=== PATIENT | male | born 1960 | race Caucasian/White ===

== ENCOUNTER 2016-07-08 18:20 | Emergency (ER) | payer SELFPAY ==
[2016-07-08] MEDS ORDERED: Lorazepam 2 MG/ML VIAL ONE (19:01)
[2016-07-08] MEDS ORDERED: Dexamethasone 10 MG/ML VIAL ONE (19:02)
[2016-07-08] MEDS ORDERED: methylPREDNISolone Sod Succ/PF 125 MG/2 ML VIAL ONE (19:02)
[2016-07-08] MEDS ORDERED: Ketorolac Tromethamine 30 MG/ML VIAL ONE (19:02)
[2016-07-08] MEDS ORDERED: Ondansetron HCl/PF 4 MG/2 ML Vial ONE (19:02)
[2016-07-08] MEDS ORDERED: Aspirin 325 MG TAB ONE (19:02)
--- NOTE | 2016-07-08 19:04 | RAD ---
EXAM: CHEST ONE VIEW 07/08/16 HISTORY: Chest pain. COMPARISON: None. FINDINGS: Portable upright chest: Normal cardiac silhouette. Pulmonary vessels and hilum are normal. Costophrenic angles are clear. No lung parenchymal mass or consolidation. No pneumothorax or osseous abnormalities. There appears to be an increased density projecting over the midline of the cardiomediastinal silhouette, incompletel y evaluated. Better interrogation with two view chest radiograph is recommended. IMPRESSION: Increased density projecting over the midline cardiac silhouette. Better interrogation with two view chest radiograph is recommended. POS: [facility]
[2016-07-08 19:14] LABS: INR-International Normal Ratio 1.3; Prothrombin Time 16.2 SEC (12.0-14.7)
[2016-07-08 19:15] LABS: PTT 31.1 SEC (22.9-36.1)
[2016-07-08 19:18] LABS: #Basophils 0.1 thou/uL (0.0-0.2); #Eosinphils 0.1 thou/uL (0.0-0.7); #Lymphocytes 1.3 thou/uL (1.20-3.40); #Monocytes 0.5 thou/uL (0.11-0.59); #Neutrophils 3.6 thou/uL (1.40-6.50); %Basophils 1.5 % (0.0-1.0); %Eosinophils 2.4 % (0.0-10.0); %Lymphocytes 23.4 % (21.0-51.0); %Neutrophils 64.6 % (42.0-75.0); Hemoglobin 9.6 g/dL (14.0-18.0); Mean Corpuscular HGB CONC 28.7 g/dL (32.0-36.0); Mean Corpuscular Hemoglobin 16.9 pg (27.0-31.0); Mean Platelet Volume 8.5 fL (7.4-10.4); Platelet Count 274 thou/uL (130-400); RBC Distribution Width 15.8 % (11.5-14.5); White Blood Cell (WBC) Count 5.5 thou/uL (4.8-10.8)
[2016-07-08 19:20] LABS: Anisocytosis MARKED = >30 cells (100X) (0-5/hpf); Hypochromia MODERATE=16-30 cells (100X) (0-5/hpf); Microcytosis MARKED = >30 cells (100X) (0-5/hpf); Target Cells SLIGHT = 2-5 cells (100X) (0-1/hpf)
[2016-07-08 19:27] LABS: Acetaminophen Less than 6.0 mcg/mL (10.0-30.0); Alcohol Less than 10 mg/dL (Less than 10); Salicylate Less than 8.0 mg/dL (15.0-30.0)
[2016-07-08 19:29] LABS: ALT (SGPT) 11 U/L (8-55); AST (SGOT) 20 U/L (5-34); Albumin 4.1 g/dL (3.5-5.0); Alkaline Phosphatase 79 U/L (40-150); Anion Gap 18 mmol/L (10-20); BUN (Urea Nitrogen) Less than 4 mg/dL (8.4-25.7); Bilirubin, Total 1.4 mg/dL (0.2-1.2); CK (CPK) 78 U/L (30-200); Calc. Creatinine Clearance 0 mL/min (70-130); Calcium 8.8 mg/dL (7.8-10.44); Carbon Dioxide 17 mmol/L (22-29); Chloride 104 mmol/L (98-107); Estimated GFR-MDRD 69; Globulin 3.2 g/dL (2.4-3.5); Glucose 83 mg/dL (70-105); Magnesium 2.1 mg/dL (1.6-2.6); Potassium 3.3 mmol/L (3.5-5.1); Protein, Total 7.3 g/dL (6.0-8.3); Sodium 136 mmol/L (136-145)
[2016-07-08 19:37] LABS: CKMB 0.7 ng/mL (0-6.6); Troponin I Less than 0.010 ng/mL (< 0.028)
[2016-07-08 19:51] LABS: Cocaine Metabolite Screen Not Detected (NotDetected); Phencyclidine (PCP) Not Detected (NotDetected); THC/Cannabinoid Screen Not Detected (NotDetected)
[2016-07-08 19:52] LABS: Amphetamine Not Detected (NotDetected); Barbiturates Screen Not Detected (NotDetected); Benzodiazepine Screen Not Detected (NotDetected); Medtox Control Line Valid? VALID (VALID); Methadone Not Detected (NotDetected); Methamphetamine Not Detected (NotDetected); Opiate Screen Not Detected (NotDetected); Oxycodone Screen Not Detected (NotDetected); Tricyclic Screen Not Detected (NotDetected)
[2016-07-08] MEDS ORDERED: Haloperidol Lactate 5 MG/ML VIAL ONE (19:54)
--- NOTE | 2016-07-08 21:07 | CT ---
CHEST CT WITHOUT CONTRAST 07/08/16 HISTORY: Possible mediastinal mass. COMPARISON: None. CORRELATION: Chest radiograph 07/08/16. FINDINGS: There appears to be pectus deformity involving the anterior chest causing mass effect upon the anter ior mediastinum and heart. This pectus deformity may in part explain the findings on the current rad iograph. Evaluation of the mediastinum is limited by lack of IV contrast. No obvious masses or lymphadenopath y. No evidence of a hiatal hernia. No evidence of a cystic lesion. Calcified subcarinal lymph nodes are noted. Visualized aorta has a normal caliber. The visualized upper solid organs are unremarkable. Trachea and central bronchi are patent. Minimal bronchiectasis in the right upper lobe. Additional a reas of scarring in the right upper lobe are noted. No suspicious masses or consolidation. No pleura l effusion or pneumothorax. No osteoblastic or osteolytic lesions. IMPRESSION: No evidence of a mediastinal mass. Abnormal finding noted on recent radiograph may be due to pectus deformity of the anterior chest. POS: [facility]
== END 2016-07-08 23:07 | disposition home or self-care (01) ==
LOC: MADERS 18:20
DX: S60.469A Insect bite (nonvenomous) of unspecified finger, initial encounter (principal); F41.9 Anxiety disorder, unspecified; F60.7 Dependent personality disorder; D64.9 Anemia, unspecified; W57.XXXA Bitten or stung by nonvenomous insect and other nonvenomous arthropods, initial encounter
CPT/HCPCS: 36415; 71010; 71250; 80053; 80306; 80307; 82553; 83735; 83880; 84443; 84484; 85025; 85610; 85730; 86140; 87086; 93005; 94760; 96372; 96374; 96375; J1100; J1630; J1885; J2060; J2405; J2930

== ENCOUNTER 2018-10-08 10:45 | Outpatient (CLI) | payer OTHER ==
[2018-10-08 11:18] LABS: #Basophils 0.1 thou/uL (0.0-0.2); #Eosinphils 0.1 thou/uL (0.0-0.7); #Lymphocytes 0.6 thou/uL (1.20-3.40); #Monocytes 0.3 thou/uL (0.11-0.59); #Neutrophils 2.5 thou/uL (1.40-6.50); %Basophils 1.5 % (0.0-1.0); %Eosinophils 2.8 % (0.0-10.0); %Lymphocytes 15.7 % (21.0-51.0); %Monocytes 9.1 % (0.0-10.0); %Neutrophils 70.9 % (42.0-75.0); Hemoglobin 13.9 g/dL (14.0-18.0); Mean Corpuscular Hemoglobin 27.7 pg (27.0-31.0); Mean Platelet Volume 6.5 fL (7.4-10.4); Platelet Count 82 thou/uL (130-400); RBC Distribution Width 12.7 % (11.5-14.5); White Blood Cell (WBC) Count 3.5 thou/uL (4.8-10.8)
[2018-10-08 11:20] LABS: MDiff Complete? YES; Manual Diff?? NO
== END 2018-10-08 10:46 | disposition home or self-care (01) ==
LOC: MADLABBHPM 10:45
PROVIDERS: ATTEND Family Medicine
DX: D50.9 Iron deficiency anemia, unspecified (principal); D69.6 Thrombocytopenia, unspecified
CPT/HCPCS: 36415; 85025